=== PATIENT | female | born 1990 | race Caucasian/White ===

== ENCOUNTER 2016-11-24 13:28 | Inpatient (IN) | payer MEDICAID, OTHER ==
[~2016-11-24] VITALS: Ht 160 cm; Wt 76.0 kg
[2016-11-24] MEDS ORDERED: XOPENEX NEB ONE (16:15)
[2016-11-24] MEDS ORDERED: methylPREDNISolone SOD SUCC 125 MG/2 ML VL IM ONE (16:15)
[2016-11-24] MEDS ORDERED: cefTRIAXone SOD 1,000 MG VL IM ONE (16:15)
[2016-11-24] MEDS ORDERED: IPRATROPIUM BROM 0.5 MG/2.5ML INH SOL NEB ONE (16:15)
[2016-11-24] MEDS ORDERED: LEVALBUTEROL HCL 1.25 MG/0.5 ML NEB SOLN NEB ONE (16:45)
[2016-11-24] MEDS ORDERED: ACETAMINOPHEN 325 MG TAB PO ONE (17:00)
[2016-11-24] MEDS ORDERED: SODIUM CHLORIDE 0.9% 1,000 ML IV ONE (17:00)
[2016-11-24 17:53] LABS: Basophils # (auto) 0 uL; Basophils % (auto) 0.3 % (0.0-2.0); Eosinophils # (auto) 0 uL; Eosinophils % (auto) 0.2 % (0.0-7.0); Hematocrit 38.1 % (36.0-46.0); Hemoglobin 12.7 g/dL (12.2-16.2); Lymphocytes # (auto) 1.3 uL; Mean Corpuscular Hemoglobin 28.5 pg (28.0-32.0); Mean Corpuscular Hgb Conc. 33.5 g/dL (32.0-36.0); Mean Corpuscular Volume 85.1 fL (80.0-100.0); Mean Platelet Volume 9.2 fL (7.4-10.4); Monocytes # (auto) 1.4 uL; Monocytes % (auto) 15.9 % (0.0-12.0); Neutrophils # (auto) 5.9 uL; Neutrophils % (auto) 68.6 % (37.0-80.0); Platelet Count (auto) 305 10^3/uL (140-450); Red Cell Distribution Width 13.4 % (11.6-16.0); White Blood Cell 8.6 10^3/uL (4.4-10.8)
[2016-11-24] MEDS ORDERED: NITROGLYCERIN 0.4 MG SL TAB SL PRN (18:00)
[2016-11-24] MEDS ORDERED: OSELTAMIVIR 75 MG CAP PO ONE (18:00)
[2016-11-24] MEDS: SODIUM CHLORIDE 0.9% 1,000 ML IV SCH (18:15)
[2016-11-24] MEDS ORDERED: cefTRIAXone 1GM/50ML D5W 50 ML IV ONE (18:15)
[2016-11-24] MEDS ORDERED: AZITHROMYCIN 500MG/D5W 250ML 250 ML IV ONE (18:15)
[2016-11-24 18:19] LABS: Albumin 3.7 g/dL (3.4-5.0); BUN/Creatinine Ratio 11.7; Bilirubin, Total 0.5 mg/dL (0.2-1.0); Calcium 9.1 mg/dL (8.5-10.1); Potassium 3.4 mmol/L (3.5-5.1); Total Protein 8.3 g/dL (6.4-8.2)
[2016-11-24] MEDS ORDERED: POTASSIUM CHL 20 Meq TABLET PO ONE (18:30)
[2016-11-24] MEDS: IPRATROPIUM BROM 0.5 MG/2.5ML INH SOL NEB SCH (19:25)
[2016-11-24] MEDS ORDERED: ONDANSETRON HCL 4 MG/2 ML VIAL ONE (19:29)
[2016-11-24] MEDS ORDERED: ONDANSETRON HCL 4 MG/2 ML VIAL IV PRN (19:30)
[2016-11-24 20:20] VITALS: BP 105/54
[2016-11-24 21:17] VITALS: BP 116/78
[2016-11-24 22:00] VITALS: BP 105/54
[2016-11-24] MEDS ORDERED: LEVALBUTEROL HCL 1.25 MG/3 ML NEB NEB SCH (22:00)
[2016-11-24] MEDS ORDERED: ACETAMINOPHEN 325 MG TAB PO PRN (22:45)
[2016-11-25] MEDS ORDERED: methylPREDNISolone SOD SUCC 40 MG/ML VL IV SCH
[2016-11-25 05:00] VITALS: BP 105/43
[2016-11-25 06:04] LABS: Basophils # (auto) 0 uL; Eosinophils # (auto) 0 uL; Hematocrit 38.9 % (36.0-46.0); Hemoglobin 12.9 g/dL (12.2-16.2); Lymphocytes # (auto) 0.8 uL; Lymphocytes % (auto) 11.3 % (10.0-50.0); Mean Corpuscular Hemoglobin 28.8 pg (28.0-32.0); Mean Corpuscular Hgb Conc. 33.3 g/dL (32.0-36.0); Mean Corpuscular Volume 86.4 fL (80.0-100.0); Mean Platelet Volume 9.2 fL (7.4-10.4); Monocytes # (auto) 0.1 uL; Monocytes % (auto) 1.3 % (0.0-12.0); Neutrophils # (auto) 5.8 uL; Neutrophils % (auto) 87.4 % (37.0-80.0); Platelet Count (auto) 261 10^3/uL (140-450); Red Cell Distribution Width 13.2 % (11.6-16.0); White Blood Cell 6.7 10^3/uL (4.4-10.8)
[2016-11-25] MEDS: OSELTAMIVIR 75 MG CAP PO SCH ×2 (06:25→18:56)
[2016-11-25] MEDS: IPRATROPIUM BROM 0.5 MG/2.5ML INH SOL NEB SCH ×5 (06:47→23:26)
[2016-11-25] MEDS: LEVALBUTEROL HCL 1.25 MG/3 ML NEB NEB SCH ×4 (06:48→23:26)
[2016-11-25 08:56] VITALS: BP 109/57
[2016-11-25] MEDS: cefTRIAXone 1GM/50ML D5W 50 ML IV SCH (10:27)
[2016-11-25] MEDS: SODIUM CHLORIDE 0.9% 1,000 ML IV SCH ×2 (10:28→23:00)
[2016-11-25 12:03] VITALS: BP 109/69
[2016-11-25] MEDS: methylPREDNISolone SOD SUCC 40 MG/ML VL IV SCH ×2 (12:07→22:34)
[2016-11-25] MEDS: AZITHROMYCIN 500MG/D5W 250ML 250 ML IV SCH (12:08)
[2016-11-25] MEDS: KETOROLAC TROMETH 30 MG/ML 1ML VIAL IV PRN (12:22)
[2016-11-25 16:55] VITALS: BP 117/60
[2016-11-25 22:00] VITALS: BP 122/73
[2016-11-26] MEDS: OSELTAMIVIR 75 MG CAP PO SCH ×2 (05:51→18:36)
[2016-11-26 05:52] LABS: Basophils # (auto) 0 uL; Eosinophils # (auto) 0 uL; Hematocrit 36.4 % (36.0-46.0); Hemoglobin 11.9 g/dL (12.2-16.2); Lymphocytes # (auto) 1.2 uL; Lymphocytes % (auto) 7.6 % (10.0-50.0); Mean Corpuscular Hemoglobin 28.4 pg (28.0-32.0); Mean Corpuscular Hgb Conc. 32.8 g/dL (32.0-36.0); Mean Corpuscular Volume 86.7 fL (80.0-100.0); Mean Platelet Volume 9.5 fL (7.4-10.4); Monocytes # (auto) 0.7 uL; Monocytes % (auto) 4.2 % (0.0-12.0); Neutrophils # (auto) 14.4 uL; Neutrophils % (auto) 88.2 % (37.0-80.0); Platelet Count (auto) 298 10^3/uL (140-450); Red Cell Distribution Width 13.4 % (11.6-16.0); White Blood Cell 16.3 10^3/uL (4.4-10.8)
[2016-11-26 05:56] VITALS: BP 114/58
[2016-11-26] MEDS: IPRATROPIUM BROM 0.5 MG/2.5ML INH SOL NEB SCH ×3 (06:00→19:21)
[2016-11-26] MEDS: LEVALBUTEROL HCL 1.25 MG/3 ML NEB NEB SCH ×3 (06:01→19:22)
[2016-11-26 06:15] LABS: BUN/Creatinine Ratio 12.1; Calcium 8.1 mg/dL (8.5-10.1); Potassium 4.1 mmol/L (3.5-5.1)
[2016-11-26] MEDS: MORPHINE SULF INJ 2 MG/ML SYRINGE 1ML IV PRN ×3 (06:28→20:39)
[2016-11-26 07:48] VITALS: BP 99/56
[2016-11-26] MEDS: cefTRIAXone 1GM/50ML D5W 50 ML IV SCH (09:00)
[2016-11-26] MEDS: AZITHROMYCIN 500MG/D5W 250ML 250 ML IV SCH (09:50)
[2016-11-26] MEDS ORDERED: methylPREDNISolone SOD SUCC 40 MG/ML VL IV SCH (10:00)
[2016-11-26] MEDS: predniSONE 20 MG TAB PO SCH (10:00)
[2016-11-26 13:19] VITALS: BP 121/72
[2016-11-26 16:49] VITALS: BP 112/68
[2016-11-26 22:00] VITALS: BP 136/65
[2016-11-27] MEDS: IPRATROPIUM BROM 0.5 MG/2.5ML INH SOL NEB SCH ×5 (00:27→23:40)
[2016-11-27] MEDS: LEVALBUTEROL HCL 1.25 MG/3 ML NEB NEB SCH ×5 (00:27→23:40)
[2016-11-27 05:09] VITALS: BP 123/52
[2016-11-27] MEDS: OSELTAMIVIR 75 MG CAP PO SCH ×2 (05:52→18:00)
[2016-11-27 09:00] VITALS: BP 122/70
[2016-11-27] MEDS: AZITHROMYCIN 500MG/D5W 250ML 250 ML IV SCH (10:06)
[2016-11-27] MEDS: predniSONE 20 MG TAB PO SCH (10:14)
[2016-11-27] MEDS ORDERED: FUROSEMIDE 20 MG/2 ML VIAL IV ONE (10:15)
[2016-11-27] MEDS ORDERED: POTASSIUM CHL 20 Meq TABLET PO ONE (10:15)
[2016-11-27] MEDS: cefTRIAXone 1GM/50ML D5W 50 ML IV SCH (11:50)
[2016-11-27] MEDS: SALINE 0.65 % NASAL SPRAY 45ML BOTTLE SCH ×3 (11:50→21:56)
[2016-11-27 13:00] VITALS: BP 111/64
[2016-11-27 17:00] VITALS: BP 127/64
[2016-11-27] MEDS: KETOROLAC TROMETH 30 MG/ML 1ML VIAL IV PRN (22:09)
[2016-11-28 00:13] VITALS: BP 127/64
[2016-11-28 05:00] VITALS: BP 103/65
[2016-11-28] MEDS: SALINE 0.65 % NASAL SPRAY 45ML BOTTLE SCH (05:39)
[2016-11-28] MEDS: OSELTAMIVIR 75 MG CAP PO SCH (05:39)
[2016-11-28 06:01] LABS: Basophils # (auto) 0 uL; Basophils % (auto) 0.2 % (0.0-2.0); Eosinophils # (auto) 0 uL; Eosinophils % (auto) 0.1 % (0.0-7.0); Hematocrit 36.6 % (36.0-46.0); Hemoglobin 12.1 g/dL (12.2-16.2); Lymphocytes # (auto) 4.8 uL; Lymphocytes % (auto) 30.8 % (10.0-50.0); Mean Corpuscular Hemoglobin 28.5 pg (28.0-32.0); Mean Corpuscular Hgb Conc. 33.2 g/dL (32.0-36.0); Monocytes # (auto) 1.5 uL; Monocytes % (auto) 9.8 % (0.0-12.0); Neutrophils # (auto) 9.2 uL; Neutrophils % (auto) 59.1 % (37.0-80.0); Platelet Count (auto) 304 10^3/uL (140-450); Red Cell Distribution Width 13.2 % (11.6-16.0); White Blood Cell 15.5 10^3/uL (4.4-10.8)
[2016-11-28] MEDS: IPRATROPIUM BROM 0.5 MG/2.5ML INH SOL NEB SCH (07:20)
[2016-11-28] MEDS: LEVALBUTEROL HCL 1.25 MG/3 ML NEB NEB SCH (07:20)
[2016-11-28 09:00] VITALS: BP 109/71
[2016-11-28] MEDS ORDERED: predniSONE 20 MG TAB PO SCH (10:00)
[2016-11-28] MEDS ORDERED: AZITHROMYCIN 250 MG TAB PO SCH (10:00)
[2016-11-28] MEDS: cefTRIAXone 1GM/50ML D5W 50 ML IV SCH (10:31)
== END 2016-11-28 12:00 | disposition home or self-care (01) | DRG 139 ==
LOC: ER 14:41 → TELE 14:42 → TELE-CENTR 20:15 → CENTRAL 11-25 20:28
PROVIDERS: ADMIT Internal Medicine; ATTEND Internal Medicine
DX: J09.X1 Influenza due to identified novel influenza A virus with pneumonia (principal); J45.901 Unspecified asthma with (acute) exacerbation; E87.6 Hypokalemia; E66.01 Morbid (severe) obesity due to excess calories; Z68.29 Body mass index [BMI] 29.0-29.9, adult; Z80.0 Family history of malignant neoplasm of digestive organs; Z82.49 Family history of ischemic heart disease and other diseases of the circulatory system; Z88.8 Allergy status to other drugs, medicaments and biological substances; Z91.040 Latex allergy status; Z72.0 Tobacco use
CPT/HCPCS: 36415; 71020; 80048; 80053; 84702; 85025; 85049; 87040; 87070; 87205; 87400; 94640; 96361; 96365; 96372; 99291; J0696; J1885; J2405

== ENCOUNTER 2022-09-23 20:46 | Emergency (ER) | payer MEDICAID ==
[~2022-09-23] VITALS: Ht 160 cm; Wt 95.3 kg
[2022-09-23 21:10] VITALS: BP 113/79
== END 2022-09-23 21:28 | disposition left against medical advice (07) ==
LOC: EDBD 20:46 → ER 20:48
DX: R53.1 Weakness (principal); R11.2 Nausea with vomiting, unspecified; Z53.21 Procedure and treatment not carried out due to patient leaving prior to being seen by health care provider